=== PATIENT | male | born 1970 | race Hispanic/Latino ===

== ENCOUNTER 2020-10-31 08:50 | Day surgery (SDC) | payer MEDICAID ==
[2020-10-31] VITALS (18 sets, daily range): BP systolic 111–196; BP diastolic 65–101
[~2020-10-31] VITALS: Ht 182.9 cm; Wt 76.7 kg
[2020-10-31] MEDS: CEFAZOLIN SODIUM 1 GM VIAL IVP SCH ×2 (06:00→12:38)
[2020-10-31 09:42] LABS: HEMATOCRIT 26.1 % (42-54); MEAN CORPUSCULAR HEMOGLOBIN 32.7 pg (27.0-33.0); MEAN CORPUSCULAR HGB CONC 31.8 g/dL (32.0-36.0); MEAN CORPUSCULAR VOLUME 102.8 fL (79-99); PLATELET COUNT (AUTO) 230 K/uL (130-400); RED BLOOD CELL COUNT(AUTO) 2.54 MIL/uL (4.50-6.20); RED CELL DISTRIBUTION WIDTH 14.2 % (11.0-15.5); WHITE BLOOD COUNT (AUTO) 11.7 K/uL (4.8-10.8)
[2020-10-31 09:50] LABS: CREATININE 4.5 mg/dL (0.5-1.5); POTASSIUM 4.4 mmol/L (3.5-5.1)
[2020-10-31 09:54] LABS: ALBUMIN 3.1 g/dL (3.5-5.0); BILIRUBIN,TOTAL 0.4 mg/dL (0.2-1.0); TOTAL PROTEIN, SERUM 7.4 g/dL (6.0-8.3)
[2020-10-31 10:05] LABS: EOSINOPHILS % (MANUAL) 1 % (1-6); LYMPHOCYTES % (MANUAL) 17 % (22-44); MAN.DIFF COMMENT-IMPRESSION MANUAL DIFFERENTIAL; MONOCYTES % (MANUAL) 8 % (2-9); PLATELET MORPHOLOGY COMMENT ADEQUATE; SEGMENTED NEUTROPHILS % 74 % (40-70)
[2020-10-31 10:06] LABS: INR 1.07 (0.85-1.15); PROTHROMBIN TIME 11.6 SEC (9.6-11.6)
[2020-10-31 10:08] LABS: PARTIAL THROMBOPLASTIN TIME 28.7 SEC (26.3-35.5)
[2020-10-31] MEDS: SODIUM CHLORIDE 0.9% 500ML 500 ML IV SCH ×2 (10:33→13:05)
[2020-10-31] MEDS ORDERED: SUCCINYLCHOLINE CHLORIDE 20 MG/ML 10 ML VIAL ONE (11:16)
[2020-10-31] MEDS ORDERED: KETAMINE 50MG/ML SYRINGE 50 MG/ML DISP.SYRIN IV ONE (11:16)
[2020-10-31] MEDS ORDERED: LIDOCAINE PF 2% 5ML ABBOJECT ONE (11:17)
[2020-10-31] MEDS ORDERED: ONDANSETRON HCL 4 MG/2 ML VIAL ONE (11:17)
[2020-10-31] MEDS ORDERED: MIDAZOLAM HCL 1 MG/ML 2ML VIAL ONE (11:17)
[2020-10-31] MEDS ORDERED: DEXAMETHASONE SOD PHOSPHATE 10MG/ML 1ML VIAL ONE (11:17)
[2020-10-31] MEDS ORDERED: NEOSTIGMINE 5MG/5ML SYR IV ONE (11:17)
[2020-10-31] MEDS ORDERED: GLYCOPYRROLATE 1 MG/5 ML SYRINGE ONE (11:17)
[2020-10-31] MEDS ORDERED: PROPOFOL 10 MG/ML 20ML VIAL IV ONE (11:17)
[2020-10-31] MEDS ORDERED: ROCURONIUM 10MG/1ML SYR 10 MG/ML ML ONE ×2 (11:17→12:43)
[2020-10-31] MEDS ORDERED: FENTANYL CITRATE PF 50 MCG/1 ML 2ML VIAL ONE (11:18)
[2020-10-31] MEDS ORDERED: LATA7.5D OU (12:25)
[2020-10-31] MEDS ORDERED: FURO40TA5 PO (12:25)
[2020-10-31] MEDS ORDERED: DOCU100C33 PO (12:25)
[2020-10-31] MEDS ORDERED: TRAM50TA4 PO (12:25)
[2020-10-31] MEDS ORDERED: PHOSLOC PO (12:25)
[2020-10-31] MEDS ORDERED: MELATONIN PO (12:25)
[2020-10-31] MEDS ORDERED: ACET-2247 PO (12:25)
[2020-10-31] MEDS ORDERED: HYDR-4153 PO (12:25)
[2020-10-31] MEDS ORDERED: CLON0.2T PO (12:25)
[2020-10-31] MEDS ORDERED: VITA1TAB22 PO (12:25)
[2020-10-31] MEDS ORDERED: LABE300T2 PO (12:25)
[2020-10-31] MEDS ORDERED: FERR325T22 PO (12:25)
[2020-10-31] MEDS ORDERED: FOLI1TAB85 PO (12:25)
[2020-10-31] MEDS ORDERED: ATROPINE OD (12:25)
[2020-10-31] MEDS ORDERED: ASCO500T10 PO (12:25)
[2020-10-31] MEDS ORDERED: BRINOS OD (12:25)
[2020-10-31] MEDS ORDERED: PREDAOS OU (12:25)
[2020-10-31] MEDS ORDERED: LOSA100T58 PO (12:25)
[2020-10-31] MEDS ORDERED: NITR0.4T50 SL (12:25)
[2020-10-31] MEDS ORDERED: COMB5OS OU (12:25)
[2020-10-31] MEDS ORDERED: EPHEDRINE SULFATE 50 MG/ML AMPULE ONE (12:33)
[2020-10-31] MEDS ORDERED: SUGAMMADEX SODIUM 200 MG/2 ML VIAL IV ONE (13:24)
[2020-10-31] MEDS ORDERED: HEPARIN SODIUM 1000UNIT/ML 10ML VIAL ONE (13:38)
[2020-10-31] MEDS ORDERED: HYDRALAZINE HCL 20 MG/ML VIAL ONE (14:27)
== END 2020-10-31 16:15 | disposition home or self-care (01) ==
LOC: DAH 08:50
PROVIDERS: ATTEND Student in an Organized Health Care Education/Training Program
DX: N18.6 End stage renal disease (principal); Z20.822 Contact with and (suspected) exposure to COVID-19; E11.22 Type 2 diabetes mellitus with diabetic chronic kidney disease; I13.2 Hypertensive heart and chronic kidney disease with heart failure and with stage 5 chronic kidney disease, or end stage renal disease; I50.9 Heart failure, unspecified; E11.39 Type 2 diabetes mellitus with other diabetic ophthalmic complication; H42 Glaucoma in diseases classified elsewhere; K21.9 Gastro-esophageal reflux disease without esophagitis; H54.7 Unspecified visual loss; D50.9 Iron deficiency anemia, unspecified; Z82.49 Family history of ischemic heart disease and other diseases of the circulatory system; Z83.3 Family history of diabetes mellitus; Z79.899 Other long term (current) drug therapy; Z99.2 Dependence on renal dialysis; Z98.890 Other specified postprocedural states
CPT/HCPCS: 36415; 36821; 80053; 82948 ×2; 85025; 85610; 85730; 86850; 86900; 86901; 87426; A4215; A4216; A4221; A4222; A4223 ×3; A4600; A4649; A4663; A6207; C1713 ×2; G0168; J0330; J0360; J0690; J1100; J1644 ×2; J2001; J2250; J2405; J2704; J2710; J3010; J3490 ×3

== ENCOUNTER 2021-03-18 08:54 | Day surgery (SDC) | payer MEDICARE ==
[2021-03-12 10:25] LABS: BASOPHILS % (AUTO) 0.9 % (0.0-5.0); EOSINOPHILS % (AUTO) 4.4 % (0.0-8.0); HEMATOCRIT 40.4 % (42-54); LYMPHOCYTES % (AUTO) 22.3 % (21.0-51.0); MEAN CORPUSCULAR HEMOGLOBIN 30.3 pg (27.0-33.0); MEAN CORPUSCULAR HGB CONC 32.4 g/dL (32.0-36.0); MEAN CORPUSCULAR VOLUME 93.3 fL (79-99); MONOCYTES % (AUTO) 8.8 % (3.0-13.0); NEUTROPHILS % (AUTO) 63.4 % (40.0-77.0); PLATELET COUNT (AUTO) 137 K/uL (130-400); RED BLOOD CELL COUNT(AUTO) 4.33 MIL/uL (4.50-6.20); WHITE BLOOD COUNT (AUTO) 5.7 K/uL (4.8-10.8)
[2021-03-12 10:41] LABS: ALBUMIN 3.3 g/dL (3.5-5.0); BILIRUBIN,TOTAL 0.5 mg/dL (0.2-1.0); CREATININE 7.5 mg/dL (0.5-1.5); POTASSIUM 4.7 mmol/L (3.5-5.1); TOTAL PROTEIN, SERUM 7.3 g/dL (6.0-8.3)
[2021-03-12 10:46] LABS: INR 1.08 (0.85-1.15); PROTHROMBIN TIME 11.7 SEC (9.6-11.6)
[2021-03-12 10:48] LABS: PARTIAL THROMBOPLASTIN TIME 29.9 SEC (26.3-35.5)
[2021-03-15 12:15] VITALS: BP 140/82
[~2021-03-18] VITALS: Ht 182.9 cm; Wt 82.7 kg
[2021-03-18] VITALS (17 sets, daily range): BP systolic 129–170; BP diastolic 63–87
[~2021-03-18 08:54] MED LIST: CEFAZOLIN SODIUM 1 GM VIAL IVP ONE; FOLI1TAB85 PO; FURO40TA5 PO; HYDR100T27 PO; LABE300T2 PO; LOSA100T58 PO; MV-M1TAB20 PO; PHOSLOC PO
[2021-03-18] MEDS ORDERED: CEFAZOLIN SODIUM 1 GM VIAL ONE (09:09)
[2021-03-18] MEDS ORDERED: 0.9% NACL 500ML IV.SOLN 500 ML IV ONE (09:16)
[2021-03-18] MEDS ORDERED: MIDAZOLAM HCL 1 MG/ML 2ML VIAL ONE (10:38)
[2021-03-18] MEDS ORDERED: FENTANYL CITRATE PF 50 MCG/1 ML 2ML VIAL ONE (10:38)
== END 2021-03-18 14:50 | disposition home or self-care (01) ==
LOC: DAH 08:54
PROVIDERS: ATTEND Student in an Organized Health Care Education/Training Program
DX: N18.6 End stage renal disease (principal); Z20.822 Contact with and (suspected) exposure to COVID-19; E11.22 Type 2 diabetes mellitus with diabetic chronic kidney disease; I13.2 Hypertensive heart and chronic kidney disease with heart failure and with stage 5 chronic kidney disease, or end stage renal disease; I50.9 Heart failure, unspecified; E11.51 Type 2 diabetes mellitus with diabetic peripheral angiopathy without gangrene; I25.10 Atherosclerotic heart disease of native coronary artery without angina pectoris; K21.9 Gastro-esophageal reflux disease without esophagitis; D64.9 Anemia, unspecified; Z99.2 Dependence on renal dialysis; Z79.01 Long term (current) use of anticoagulants
CPT/HCPCS: 36415; 80053; 82948; 84132; 85025; 85610; 85730; 87635; C9803; J0690; J1644; J2250; J3010; J7040